=== PATIENT | male | born 1960 | race Caucasian/White ===

== ENCOUNTER 2020-05-25 09:40 | Day surgery (SDC) | payer OTHER ==
[~2020-05-25] VITALS: Ht 25.4 cm; Wt 72.6 kg
--- NOTE | 2020-05-25 15:29 | NUR ---
PT USES CALL LIGHT TO NOTIFY DS STAFF OF URGE TO VOID. PT UP TO BATHROOM WITH RN ASSIST. PT ABLE TO VOID QS, BACK TO DS RM 4. RIGHT ARM ELEVATED ON PILLOW D/T NUMBNESS FROM BLOCK. PT AGGITATED FROM WAITING MOST OF THE DAY FOR SURGERY. CALL LIGHT WITHIN REACH.
--- NOTE | 2020-05-25 16:24 | NUR ---
PT DAUGHTER MORIAH PROVIDED PRESCRIPTION FILLED BY [facility]. PACU NOTIFIED AND WILL GIVE REPORT TO MED SURG.
--- NOTE | 2020-05-25 18:03 | NUR ---
05/25/20 180 Destinee Mcintosh 1711 PT ARRIVED IN PACU WIDE AWAKE WITH NO C/O'S. 1730 OXYGEN REMOVED. SATS DROPPED TO 88-89% ON RA. ENCOURAGED COUGH, DEEP BREATHING. SATS INCREASED TO 90%. 174 CRYO CUFF PLACED. O2 AT 2L VIA NC PLACED FOR SATS 88% ON RA. CONTINUED TO ENCOURAGE PT TO COUGH, DEEP BREATH. TAKING SIPS OF WATER. 1755 TO ROOM 119. CALL LITE GIVEN TO PT. DAUGHTER IN ROOM.
--- NOTE | 2020-05-25 18:09 | NUR ---
Pt back from surgery dept. Pt a&ox4. Pt's vital signs are stable, respirations even and non labored, 02 sat level of 94% on room air. Pt reports right shoulder is numb at this time, cms intact. Immobilzer and sling to right shoulder, dressing cdi. Right are elevated. Pt is due to void and wants to dicharge kathie per his report. Jello and water provided. Family member at bedside.
--- NOTE | 2020-05-25 18:51 | NUR ---
Pt doing well, vs stable, 02 sat level 91% at this time. Pt denies pain. Right shoulder still numb per pt, cms intact. Pt tolerating po well. Pt wants to go home. Waiting for pt to void. Family remains at bedside.
--- NOTE | 2020-05-25 19:35 | NUR ---
PT DISCHARGED TO FRONT DOOR VIA W/C. IV CATH DC'D PRIOR TO DISCHARGE, DAY SYLVIE GOLDBERG WENT OVER DISCHARGE PAPERWORK. PT LEFT WITH CRYO, WITH TEACHING TO PT DAUGHTER. VITALS COMPLETED PRIOR TO DISCHARGE.
--- NOTE | 2020-05-26 07:35 | OR ---
[facility] [address] [place], [place] [address] Signed DATE OF OPERATION: 05/25/2020 SURGEON: Audrey Forrest MD POSTOPERATIVE DIAGNOSIS: Rotator cuff tear, right shoulder. POSTOPERATIVE DIAGNOSIS: Rotator cuff tear, right shoulder. PROCEDURE PERFORMED: Right shoulder arthroscopy and debridement of rotator cuff tear. VEHICLE DISMANTLER: ADRIANA Grayson ANESTHESIA: General. BLOOD LOSS: Minimal. IMPLANTS: No implants. BRIEF HISTORY: Jaylen is a 60-year-old gentleman with a history of pain and difficulty at the shoulder. MRI was consistent with partial full-thickness rotator cuff tear. Risks and benefits of operative treatment were discussed with him after nonoperative treatment failed and he wished to proceed. DESCRIPTION OF PROCEDURE: Once consent was obtained, he was taken to the operating room. After adequate anesthesia, he was placed in a beach chair position. All downside pressure points were well padded. The shoulder was prepped and draped in a standard sterile fashion. The shoulder was injected with 15 mL of 0.25% Marcaine with epinephrine as was subacromial space. Standard posterior portal was made and the scope was introduced in the shoulder. ARTHROSCOPIC FINDINGS: There was some minor fraying of the labrum anteriorly. The subscap was intact. The Electronically Signed By: AUDREY FORREST MD 05/26/20 0735 PATIENT NAME: JAYLEN JIMENEZ OPERATIVE REPORT DATE OF : 62 REPORT #: [id number] PHYSICIAN: AUDREY FORREST MD PCP: YAIR CLIFFORD MD REPORT IS CONFIDENTIAL AND NOT TO BE RELEASED WITHOUT AUTHORIZATION [facility] [address], [place] [address] Signed glenohumeral surfaces were intact. Biceps and biceps anchor were intact. There was a partial-thickness approximately 50% tear of the biceps posteriorly and the supraspinatus. The superior surface of the rotator cuff was found to be intact. There was heavy thick bursitis throughout the subacromial space with much scarring. DESCRIPTION OF OPERATION: Diagnostic arthroscopy was undertaken as noted above. The scope was then withdrawn, placed in the subacromial space and standard lateral and anterior lateral portals were made and the bursitis and scarring in the subacromial space was removed using combination of the shaver and the tissue ablation one. The partial rotator cuff tear had been marked with a spinal needle and this was located. The superior surface was completely intact and felt quite stable. The undersurface of the acromion was type 1. Once we had cleared all the bursitis, the scope was withdrawn, placed back into the shoulder and the standard anterior portal was established and the rotator cuff tear was debrided. We then showed off the water and established that there was excellent bleeding in the area. The scope was withdrawn. Portals were closed with 3-0 nylon, dressed with ProWick dressing. He tolerated the procedure well. All sponge, needle, and instrument counts were correct. Audrey Forrest MD BA/GREGL /[id number] Copies: ~ Electronically Signed By: AUDREY FORREST MD 05/26/20 0735 PATIENT NAME: JAYLEN JIMENEZ OPERATIVE REPORT DATE OF : 62 REPORT #: [id number] PHYSICIAN: AUDREY FORREST MD PCP: YAIR CLIFFORD MD REPORT IS CONFIDENTIAL AND NOT TO BE RELEASED WITHOUT AUTHORIZATION
== END 2020-05-25 19:35 | disposition home or self-care (01) ==
LOC: DS 09:40 → MS 17:55 → DS 19:35
PROVIDERS: Specialist
PROC: 0RBJ4ZZ Excision of Right Shoulder Joint, Percutaneous Endoscopic Approach (ICD-10-PCS; principal; 2020-05-25 13:45)
DX: M75.111 Incomplete rotator cuff tear or rupture of right shoulder, not specified as traumatic (principal); J45.909 Unspecified asthma, uncomplicated; K21.9 Gastro-esophageal reflux disease without esophagitis; Z79.899 Other long term (current) drug therapy; Z87.891 Personal history of nicotine dependence
CPT/HCPCS: 00450; 64415; 76942; A9270; J0330; J0690; J1100; J1885; J2001; J2250; J2405; J2765; J3010; J7121